=== PATIENT | female | born 1980 | race American Indian/Alaskan Native ===

== ENCOUNTER 2017-05-09 21:38 | Emergency (ER) | payer SELFPAY ==
[2017-05-09 22:02] VITALS: TEMP 98.1
[2017-05-09 23:15] VITALS: BP 131/73; PULSE 80; RESP 18
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
[2017-05-09 23:17] VITALS: O2SAT 95
== END 2017-05-09 23:24 | disposition home or self-care (01) ==
LOC: C.ER 21:38
DX: S46.911A Strain of unspecified muscle, fascia and tendon at shoulder and upper arm level, right arm, initial encounter (principal); V43.62XA Car passenger injured in collision with other type car in traffic accident, initial encounter; Y92.410 Unspecified street and highway as the place of occurrence of the external cause